=== PATIENT | female | born 1970 | race Two or more races ===

== ENCOUNTER 2018-09-13 10:41 | Emergency (ER) | payer MEDICAID ==
[~2018-09-13] VITALS: Ht 147.3 cm; Wt 70.0 kg
[~2018-09-13 10:41] MED LIST: ACET-75 PO; ALBU6.7H9 INH; BECL7.3A INH; COLC0.6T67 PO; LORA10TA7 PO
[2018-09-13 10:52] VITALS: BP 151/83
[2018-09-13] MEDS ORDERED: PENI500T2 PO (11:37)
== END 2018-09-13 12:22 | disposition home or self-care (01) ==
LOC: ER 10:42
DX: K04.7 Periapical abscess without sinus (principal); J45.909 Unspecified asthma, uncomplicated; Z79.899 Other long term (current) drug therapy; Z98.890 Other specified postprocedural states
CPT/HCPCS: 99283

== ENCOUNTER 2022-04-13 16:56 | Emergency (ER) | payer MEDICAID ==
[~2022-04-13] VITALS: Ht 147.3 cm; Wt 79.5 kg
[~2022-04-13 16:56] MED LIST changes: +ALBU6.7H14 INH; -ALBU6.7H9 INH
[2022-04-13 17:44] LABS: EOSINOPHILS % (AUTO) 0.2 % (0-6); HEMOGLOBIN 13.6 g/dl (12.0-16.0); LYMPHOCYTES # (AUTO) 0.5 X10'3 (1.1-4.8); LYMPHOCYTES % (AUTO) 2.6 % (21-51); WHITE BLOOD COUNT 20.5 X10'3 (4.5-11.0)
[2022-04-13 17:46] LABS: BASOPHILS % (AUTO) 0.2 % (0-1); HEMATOCRIT 41.8 % (35.0-45.0); MEAN CORPUSCULAR HEMOGLOBIN 27.1 PG (27.0-31.0); MEAN CORPUSCULAR HGB CONC 32.6 g/dL (33.0-36.5); MEAN CORPUSCULAR VOLUME 83.1 FL (78-98); MEAN PLATELET VOLUME 7.9 FL (7.4-10.4); NEUTROPHILS # (AUTO) 18.9 X10'3 (1.8-7.7); PLATELET COUNT 277 X10'3 (140-440); RED BLOOD COUNT 5.03 X10'6 (4.20-5.60)
[2022-04-13 17:58] LABS: ALANINE AMINOTRANSFERASE 14 U/L (12-78); ALBUMIN 3.6 G/DL (3.4-5.0); ALBUMIN/GLOBULIN RATIO 0.9 (1.1-1.5); ALKALINE PHOSPHATASE 80 IU/L (46-116); ANION GAP 12 (8-16); ASPARTATE AMINO TRANSFERASE 23 U/L (10-37); BILIRUBIN,TOTAL 0.7 MG/DL (0.1-1.0); BLOOD UREA NITROGEN 10 MG/DL (7-18); BUN/CREATININE RATIO 16.4 (6.6-38.0); CALCIUM 8.7 MG/DL (8.5-10.1); CHLORIDE 104 MMOL/L (99-107); CREATININE 0.61 MG/DL (0.40-0.90); GLUCOSE 101 MG/DL (70-104); SODIUM 139 MMOL/L (135-145); TOTAL CARBON DIOXIDE 23.3 MMOL/L (24-32); TOTAL PROTEIN 7.8 G/DL (6.4-8.2); eGFR > 90 ML/MIN
[2022-04-13 18:21] LABS: POTASSIUM 2.9 MMOL/L (3.5-5.1)
[2022-04-13 18:35] LABS: LIPASE 2850 U/L (73-393)
--- NOTE | 2022-04-13 18:54 | NUR ---
Pt not in lobby, will check outside. Called her number, it has "been changed or disconnected."
--- NOTE | 2022-04-13 18:55 | NUR ---
Registration found her, bringing her to bed 4
[2022-04-13] MEDS ORDERED: ondansetron/PF 4mg/2ml inj IV ONE (19:05)
[2022-04-13] MEDS ORDERED: LIDOcaine Viscous 15ml cup MM ONE (19:05)
[2022-04-13] MEDS ORDERED: ketorolac trometh. 30mg/ml inj. IV ONE (19:05)
[2022-04-13] MEDS ORDERED: mag hydrox/Alum hydrox/simeth 30ml oral suspension PO ONE (19:05)
[2022-04-13] MEDS ORDERED: CefTRIAXone 2gm/D5W 50ml BAG 50 ML IV ONE (19:05)
[2022-04-13] MEDS ORDERED: morphine 2 MG/ML inj. syringe IV ONE (19:10)
[2022-04-13] MEDS ORDERED: normal saline 1000ML IV soln IVB ONE (19:10)
[2022-04-13 19:14] LABS: CLARITY,URINE CLOUDY (Clear); COLOR,URINE YELLOW (Yellow); GLUCOSE, URINE NEGATIVE (Neg); KETONES,URINE TRACE mg/dl (Neg); LEUKOCYTE ESTERASE ,URINE LARGE (Neg); NITRITES, URINE POSITIVE (Neg); OCCULT BLOOD,URINE SMALL (Neg); PH,URINE 6.5 (4.8-8.0); PROTEIN,URINE 30 mg/dl (Neg); UROBILINOGEN,URINE 0.2 E.U/dL (0.2-1.0)
[2022-04-13 19:15] LABS: UA COLLECTION TYPE CLN CATCH MIDSTREAM
[2022-04-13 19:16] LABS: URINE HCG NEGATIVE (NEG)
[2022-04-13] MEDS ORDERED: iohexol 300mg/ml 100ml inj. ONE (19:17)
[2022-04-13 19:26] LABS: RBC,URINE 0-2 /HPF (0-2); WBC,URINE TNTC /HPF (0-4)
[2022-04-13 19:27] LABS: BACTERIA,URINE 2+ /HPF (Neg); SQUAMOUS EPITHELIAL CELL,UR FEW /LPF (FEW)
[2022-04-13 19:28] LABS: WBC CLUMPS,URINE MANY /HPF (NEGATIVE)
[2022-04-13] MEDS ORDERED: POTA-207 PO (21:04)
[2022-04-13] MEDS ORDERED: HYDR-3965 PO (21:04)
[2022-04-13] MEDS ORDERED: CEPH-585 PO (21:04)
[2022-04-13] MEDS ORDERED: ONDA4TAB12 PO (21:04)
[2022-04-13 21:59] VITALS: BP 149/103
== END 2022-04-13 22:05 | disposition home or self-care (01) ==
LOC: ER 16:56
DX: E87.6 Hypokalemia (principal); N39.0 Urinary tract infection, site not specified; K85.90 Acute pancreatitis without necrosis or infection, unspecified; J45.909 Unspecified asthma, uncomplicated; E11.9 Type 2 diabetes mellitus without complications; Z98.890 Other specified postprocedural states; Z79.899 Other long term (current) drug therapy
CPT/HCPCS: 36415; 74177; 80053; 81001; 81025; 83605; 83690; 84145; 85025; 87040; 87077; 87088; 87186; 96365; 96375; 99285; J0696; J1885; J2270; J2405; J3490; J7030; Q9967; 99283